=== PATIENT | female | born 1995 | race Caucasian/White ===

== ENCOUNTER 2018-01-10 13:56 | Emergency (ER) | payer MEDICAID ==
[~2018-01-10] VITALS: Ht 170.2 cm; Wt 55.0 kg
[~2018-01-10 13:56] MED LIST: OMEP-84 PO
[2018-01-10 14:04] VITALS: BP 137/79
[2018-01-10] MEDS ORDERED: CEPH500C5 PO (14:08)
[2018-01-10] MEDS ORDERED: SULF1TAB49 PO (14:08)
== END 2018-01-10 14:18 | disposition home or self-care (01) ==
LOC: ER 13:57
DX: B95.8 Unspecified staphylococcus as the cause of diseases classified elsewhere (principal); F11.90 Opioid use, unspecified, uncomplicated; Z79.899 Other long term (current) drug therapy
CPT/HCPCS: 99283

== ENCOUNTER → 2018-08-04 | Emergency (ER) | payer MEDICAID ==
[~2018-08-04] VITALS: Ht 162.6 cm; Wt 53.9 kg
[~2018-08-04] MED LIST changes: +CEPH-572 PO; +CEPH500C5 PO; +HYDR-4353 PO; +LIDOcaine 1% w/epiNEPHrine 1:200,000 30ml vial IM ONE; +SULF1TAB49 PO; +TETanus/Pertussis (Acell)/Diphther VAC/PF (Tdap-Adult) 0.5ml syringe IM ONE
[2018-08-04 08:34] VITALS: BP 132/97
== END | disposition home or self-care (01) ==
LOC: ER 08:30
DX: L02.414 Cutaneous abscess of left upper limb (principal); Z88.0 Allergy status to penicillin
CPT/HCPCS: 10060; 87070; 87186; 90471; 90715; 99283; J3490; 87077

== ENCOUNTER 2019-03-30 15:43 | Emergency (ER) | payer MEDICAID ==
[~2019-03-30] VITALS: Ht 162.6 cm; Wt 61.0 kg
[~2019-03-30 15:43] MED LIST changes: -CEPH-572 PO; -CEPH500C5 PO; -HYDR-4353 PO; -LIDOcaine 1% w/epiNEPHrine 1:200,000 30ml vial IM ONE; -SULF1TAB49 PO; -TETanus/Pertussis (Acell)/Diphther VAC/PF (Tdap-Adult) 0.5ml syringe IM ONE
[2019-03-30 19:04] VITALS: BP 122/62
== END 2019-03-30 18:43 | disposition home or self-care (01) ==
LOC: ER 15:44
DX: O9A.211 Injury, poisoning and certain other consequences of external causes complicating pregnancy, first trimester (principal); S86.812A Strain of other muscle(s) and tendon(s) at lower leg level, left leg, initial encounter; O99.331 Smoking (tobacco) complicating pregnancy, first trimester; O99.321 Drug use complicating pregnancy, first trimester; O99.311 Alcohol use complicating pregnancy, first trimester; F11.90 Opioid use, unspecified, uncomplicated; Z88.0 Allergy status to penicillin; Z79.899 Other long term (current) drug therapy; Z3A.13 13 weeks gestation of pregnancy; X58.XXXA Exposure to other specified factors, initial encounter; Y93.89 Activity, other specified; Y92.89 Other specified places as the place of occurrence of the external cause; Y99.8 Other external cause status
CPT/HCPCS: 93971; 99284

== ENCOUNTER 2019-04-13 20:34 | Emergency (ER) | payer MEDICAID ==
[~2019-04-13] VITALS: Ht 162.6 cm; Wt 60.9 kg
[2019-04-13 22:08] VITALS: BP 130/53
[2019-04-13] MEDS ORDERED: BUPR1TAB36 (22:13)
[2019-04-13] MEDS ORDERED: ACET-1025 PO (22:13)
[2019-04-13] MEDS ORDERED: PYRI25TA3 (22:13)
[2019-04-13] MEDS ORDERED: PNV1TABL7 PO (22:14)
[2019-04-13] MEDS ORDERED: acetaminophen 325mg tablet PO ONE (22:20)
== END 2019-04-13 22:47 | disposition home or self-care (01) ==
LOC: ER 20:35
DX: O26.892 Other specified pregnancy related conditions, second trimester (principal); M79.605 Pain in left leg; O99.322 Drug use complicating pregnancy, second trimester; F11.90 Opioid use, unspecified, uncomplicated; O99.332 Smoking (tobacco) complicating pregnancy, second trimester; F17.200 Nicotine dependence, unspecified, uncomplicated; O99.312 Alcohol use complicating pregnancy, second trimester; Z88.0 Allergy status to penicillin; Z79.899 Other long term (current) drug therapy; Z3A.00 Weeks of gestation of pregnancy not specified
CPT/HCPCS: 99283

== ENCOUNTER 2020-01-08 22:45 | Emergency (ER) | payer MEDICAID ==
[~2020-01-08] VITALS: Ht 162.6 cm; Wt 74.5 kg
[~2020-01-08 22:45] MED LIST changes: +ACET-1025 PO; +BUPR1TAB45; -OMEP-84 PO; +PNV1TABL7 PO; +PYRI25TA3
[2020-01-08 23:45] LABS: BASOPHILS % (AUTO) 0.3 % (0-1); EOSINOPHILS # (AUTO) 0.2 X10'3 (0-0.9); EOSINOPHILS % (AUTO) 1.5 % (0-6); HEMATOCRIT 36.4 % (35.0-45.0); HEMOGLOBIN 11.9 g/dl (12.0-16.0); LYMPHOCYTES # (AUTO) 2.8 X10'3 (1.1-4.8); LYMPHOCYTES % (AUTO) 21.1 % (21-51); MEAN CORPUSCULAR HEMOGLOBIN 30.1 PG (27.0-31.0); MEAN CORPUSCULAR HGB CONC 32.7 g/dL (33.0-36.5); MEAN CORPUSCULAR VOLUME 92.1 FL (78-98); MONOCYTES # (AUTO) 0.6 X10'3 (0-0.9); MONOCYTES % (AUTO) 4.6 % (2-12); NEUTROPHILS # (AUTO) 9.5 X10'3 (1.8-7.7); NEUTROPHILS % (AUTO) 72.5 % (42-75); PLATELET COUNT 316 X10'3 (140-440); RED BLOOD COUNT 3.96 X10'6 (4.20-5.60); RED CELL DISTRIBUTION WIDTH 12.9 % (11.5-14.5); WHITE BLOOD COUNT 13.2 X10'3 (4.5-11.0)
[2020-01-08 23:49] LABS: CLARITY,URINE CLEAR (Clear); COLOR,URINE YELLOW (Yellow); GLUCOSE, URINE NEGATIVE (Neg); KETONES,URINE NEGATIVE (Neg); LEUKOCYTE ESTERASE ,URINE NEGATIVE (Neg); NITRITES, URINE NEGATIVE (Neg); OCCULT BLOOD,URINE TRACE-INTACT (Neg); PROTEIN,URINE NEGATIVE (Neg); URINE HCG NEGATIVE (NEG); UROBILINOGEN,URINE 0.2 E.U/dL (0.2-1.0)
[2020-01-08 23:50] LABS: UA COLLECTION TYPE CLN CATCH MIDSTREAM
[2020-01-08 23:54] LABS: BACTERIA,URINE NONE SEEN /HPF (Neg); RBC,URINE 0-2 /HPF (0-2); SQUAMOUS EPITHELIAL CELL,UR FEW /LPF (FEW); WBC,URINE NONE SEEN /HPF (0-4)
[2020-01-09 00:04] LABS: ALANINE AMINOTRANSFERASE 30 U/L (12-78); ALBUMIN 3.8 G/DL (3.4-5.0); ALKALINE PHOSPHATASE 89 IU/L (46-116); ANION GAP 7 (8-16); ASPARTATE AMINO TRANSFERASE 17 U/L (10-37); BILIRUBIN,TOTAL 0.4 MG/DL (0.1-1.0); BLOOD UREA NITROGEN 14 MG/DL (7-18); BUN/CREATININE RATIO 14.3 (6.6-38.0); CALCIUM 8.8 MG/DL (8.5-10.1); CHLORIDE 102 MMOL/L (99-107); CREATININE 0.98 MG/DL (0.40-0.90); GLUCOSE 87 MG/DL (70-104); POTASSIUM 3.9 MMOL/L (3.5-5.1); SODIUM 138 MMOL/L (135-145); TOTAL CARBON DIOXIDE 29.5 MMOL/L (24-32); TOTAL PROTEIN 7.8 G/DL (6.4-8.2); eGFR 70 ML/MIN
[2020-01-09 00:29] VITALS: BP 118/75
== END 2020-01-09 00:32 | disposition home or self-care (01) ==
LOC: ER 22:46
DX: N64.4 Mastodynia (principal); N63.0 Unspecified lump in unspecified breast; R10.84 Generalized abdominal pain; F11.90 Opioid use, unspecified, uncomplicated; Z72.89 Other problems related to lifestyle; Z88.0 Allergy status to penicillin; Z79.899 Other long term (current) drug therapy
CPT/HCPCS: 36415; 80053; 81001; 81025; 85025; 99283

== ENCOUNTER 2020-12-20 03:19 | Emergency (ER) | payer MEDICAID ==
[~2020-12-20] VITALS: Ht 162.6 cm; Wt 76.2 kg
[2020-12-20] MEDS ORDERED: normal saline 1000ml 1,000 ML IV ONE (03:55)
[2020-12-20] MEDS ORDERED: acetaminophen 325mg tablet PO ONE (03:55)
[2020-12-20 05:20] LABS: CLARITY,URINE CLEAR (Clear); COLOR,URINE YELLOW (Yellow); GLUCOSE, URINE NEGATIVE (Neg); KETONES,URINE NEGATIVE (Neg); LEUKOCYTE ESTERASE ,URINE NEGATIVE (Neg); NITRITES, URINE NEGATIVE (Neg); OCCULT BLOOD,URINE NEGATIVE (Neg); PH,URINE 5.5 (4.8-8.0); PROTEIN,URINE NEGATIVE (Neg); UROBILINOGEN,URINE 0.2 E.U/dL (0.2-1.0)
[2020-12-20 05:22] LABS: UA COLLECTION TYPE CLN CATCH MIDSTREAM
[2020-12-20 05:24] LABS: BASOPHILS % (AUTO) 0.3 % (0-1); EOSINOPHILS # (AUTO) 0.1 X10'3 (0-0.9); EOSINOPHILS % (AUTO) 0.8 % (0-6); HEMATOCRIT 34.1 % (35.0-45.0); HEMOGLOBIN 11.3 g/dl (12.0-16.0); LYMPHOCYTES # (AUTO) 1.4 X10'3 (1.1-4.8); LYMPHOCYTES % (AUTO) 10.6 % (21-51); MEAN CORPUSCULAR HEMOGLOBIN 30.2 PG (27.0-31.0); MEAN CORPUSCULAR HGB CONC 33.3 g/dL (33.0-36.5); MEAN CORPUSCULAR VOLUME 90.9 FL (78-98); MEAN PLATELET VOLUME 9.4 FL (7.4-10.4); MONOCYTES # (AUTO) 0.8 X10'3 (0-0.9); MONOCYTES % (AUTO) 6.1 % (2-12); NEUTROPHILS # (AUTO) 11.1 X10'3 (1.8-7.7); NEUTROPHILS % (AUTO) 82.2 % (42-75); PLATELET COUNT 229 X10'3 (140-440); RED BLOOD COUNT 3.75 X10'6 (4.20-5.60); RED CELL DISTRIBUTION WIDTH 13.2 % (11.5-14.5); WHITE BLOOD COUNT 13.4 X10'3 (4.5-11.0)
[2020-12-20 05:43] LABS: ALANINE AMINOTRANSFERASE 131 U/L (12-78); ALBUMIN 3.7 G/DL (3.4-5.0); ALKALINE PHOSPHATASE 93 IU/L (46-116); ANION GAP 10 (8-16); ASPARTATE AMINO TRANSFERASE 37 U/L (10-37); BILIRUBIN,TOTAL 0.6 MG/DL (0.1-1.0); BLOOD UREA NITROGEN 11 MG/DL (7-18); BUN/CREATININE RATIO 16.4 (6.6-38.0); CALCIUM 8.3 MG/DL (8.5-10.1); CHLORIDE 101 MMOL/L (99-107); CREATININE 0.67 MG/DL (0.40-0.90); GLUCOSE 76 MG/DL (70-104); POTASSIUM 3.1 MMOL/L (3.5-5.1); SODIUM 135 MMOL/L (135-145); TOTAL PROTEIN 7.5 G/DL (6.4-8.2); eGFR > 90 ML/MIN
[2020-12-20] MEDS ORDERED: CEPH-585 PO (06:02)
[2020-12-20] MEDS ORDERED: cephalexin 250mg capsule PO ONE (06:05)
[2020-12-20 06:57] VITALS: BP 131/79
== END 2020-12-20 06:58 | disposition home or self-care (01) ==
LOC: ER 03:19
DX: N61.0 Mastitis without abscess (principal); Z20.822 Contact with and (suspected) exposure to COVID-19; F11.90 Opioid use, unspecified, uncomplicated; Z88.8 Allergy status to other drugs, medicaments and biological substances; Z79.2 Long term (current) use of antibiotics; Z79.899 Other long term (current) drug therapy; Z72.89 Other problems related to lifestyle
CPT/HCPCS: 36415; 80053; 81003; 83605; 84145; 85025; 87040; 87635; 96360; 99283; C9803; J7030

== ENCOUNTER 2021-02-19 21:34 | Emergency (ER) | payer MEDICAID ==
[~2021-02-19] VITALS: Ht 162.6 cm; Wt 74.5 kg
[2021-02-19 21:54] VITALS: BP 111/74
== END 2021-02-19 23:20 | disposition home or self-care (01) ==
LOC: ER 21:35
DX: U07.1 COVID-19 (principal); R43.8 Other disturbances of smell and taste; R05 Cough; R11.0 Nausea; R07.89 Other chest pain; F11.90 Opioid use, unspecified, uncomplicated; Z72.89 Other problems related to lifestyle; Z79.899 Other long term (current) drug therapy
CPT/HCPCS: 87635; 99283; C9803

== ENCOUNTER 2021-10-20 02:31 | Emergency (ER) | payer MEDICAID ==
[~2021-10-20] VITALS: Ht 162.6 cm; Wt 68.2 kg
[2021-10-20 02:37] VITALS: BP 126/60
--- NOTE | 2021-10-20 06:37 | NUR ---
PT NOT IN LOBBY
== END 2021-10-20 09:03 | disposition left against medical advice (07) ==
LOC: ER 02:32
DX: R11.0 Nausea (principal); Z53.21 Procedure and treatment not carried out due to patient leaving prior to being seen by health care provider